=== PATIENT | male | born 1960 | race Caucasian/White ===

== ENCOUNTER 2020-11-15 08:32 | Emergency (ER) | payer OTHER ==
[2020-11-15] MEDS ORDERED: PREDNISONE20 MG PO (10:19)
[2020-11-15] MEDS ORDERED: CEPHALEXIN500 M1 PO (10:19)
[2020-11-15] MEDS ORDERED: NORCO 5-325 TA1 EACH PO (10:19)
[2020-11-15] MEDS ORDERED: VALTREX500 MG PO (10:19)
== END 2020-11-15 10:35 | disposition home or self-care (01) ==
LOC: FER 08:32
DX: B02.9 Zoster without complications (principal)
CPT/HCPCS: 99284